=== PATIENT | female | born 2000 | race Caucasian/White ===

== ENCOUNTER 2019-11-29 07:23 | Emergency (ER) | payer OTHER ==
[~2019-11-29] VITALS: Ht 165.1 cm; Wt 69.9 kg
[2019-11-29 07:33] VITALS: Ht 165.1 cm; Wt 69.9 kg
[2019-11-29 09:42] VITALS: BP 116/75
== END 2019-11-29 09:42 | disposition home or self-care (01) ==
LOC: ED 07:23
DX: R10.13 Epigastric pain (principal); R11.0 Nausea